=== PATIENT | female | born 1980 | race African-American/Black ===

== ENCOUNTER 2018-03-10 09:36 | Day surgery (SDC) | payer OTHER ==
[2018-03-06 10:13] VITALS: BMI 28.0
[2018-03-10] MEDS ORDERED: ONDANSETRON 4 MG/2 ML VIAL ONE ×2 (11:47→13:40)
[2018-03-10] MEDS ORDERED: MIDAZOLAM HCL 2 MG/2 ML SINGLE DOSE VIAL ONE (11:47)
[2018-03-10] MEDS ORDERED: DEXAMETHASONE SOD PHOSPHATE 4 MG/1 ML VIAL ONE (11:47)
[2018-03-10] MEDS ORDERED: LIDOCAINE HCL/PF 2% SDV 5ML VIAL ONE (11:47)
[2018-03-10] MEDS ORDERED: PROPOFOL 20 ML ONE (11:47)
[2018-03-10] MEDS ORDERED: methylPREDNISolone ACET (DEPO) 40 MG/1 ML VIAL ONE (12:18)
[2018-03-10] MEDS ORDERED: EPINEPHrine 1:1,000 1 MG/1 ML - 30ML VIAL (INJECTION) ONE (12:18)
[2018-03-10] MEDS ORDERED: BUPIVACAINE HCL 0.25% 125 MG/50 ML VIAL ONE (12:18)
[2018-03-10] MEDS ORDERED: ceFAZolin SODIUM 1 GM VIAL ONE (12:47)
[2018-03-10] MEDS ORDERED: methylPREDNISolone ACET (DEPO) 40 MG/1 ML VIAL NR ONE (13:15)
[2018-03-10] MEDS ORDERED: BUPIVACAINE HCL/PF 0.25% (2.5MG/ML) 10 ML VIAL IJ ONE (13:15)
--- NOTE | 2018-03-10 13:30 | PN ---
Progress Note (short form) - Note Progress Note: 37F s/p SARK POD #0. -Pain control. -WBAT RLE. -Percocet, Meloxicam ordered to patient's pharmacy. -f/u post-op trial of void. -Diet as tolerated. -Keep dressing clean & dry; d/c on Tuesday & place waterproof Band-Aids over incision sites. -Cane vs crutches. -f/u [facility] [place] office 03/17/2018; call for appointment; [phone]. Mike Main MD (Orthopaedic Surgery).
--- NOTE | 2018-03-10 13:32 | OP ---
Operative Note - Note: Operative Date: 03/10/18 Pre-Operative Diagnosis: Internal derrangement right knee Operation: Surgical arthroscopy right knee with debridement Findings: 1. Degenerative, partial ACL tear 2. Grade 1 chondromalacia patella, trochlear sulcus, and lateral tibial plateau Post-Operative Diagnosis: Same as Pre-op Surgeon: Mike Main Anesthesiologist/HVAC SALES ENGINEER: Tay Moreno Anesthesia: General Fluid Volume Replaced (mls): 800 (Crystalloid) Operative Report Dictated: Yes
[2018-03-10 15:10] VITALS: TEMP 97.9
--- NOTE | 2018-03-10 15:48 | OP ---
DATE OF OPERATION: 03/10/2018 DATE OF DICTATION: 03/10/2018 PREOPERATIVE DIAGNOSIS: Posttraumatic meniscal tear, left knee. POSTOPERATIVE DIAGNOSIS: Partial tear, left anterior cruciate ligament with chondromalacia retropatellar surface and lateral tibial plateau. SURGEON: Mike Main M.D. ANESTHESIA: General. OPERATION PERFORMED: Arthroscopy left knee. DESCRIPTION OF PROCEDURE: The patient was correctly identified. Brought into the operating room. The left lower extremity was prepped and free draped in the routine manner with a Betadine scrub solution, wiped off with alcohol, DuraPrep applied. Arthroscopic instrumentation introduced into the left knee. Findings revealed the following: The synovium was normal throughout the entire knee. The retropatellar surface revealed Outerbridge level 1 changes with some fibular changes noted. This was on the lateral facet. The trochlear groove was smooth, clean, and completely normal as was the entire hyaline cartilage of the femoral condyle and the medial tibial plateau. The lateral tibial plateau arthroscopically revealed grade 1 Outerbridge chondromalacia changes. The medial meniscus and lateral meniscus were pristine and uncomplicated, and normal. The popliteal fossa was normal. The anterior cruciate ligament revealed thickening layer of inner mucosa, some mild hemorrhage around the cruciate ligament noted, and longitudinal fibular tears noted in the actual anterior cruciate ligament giving the diagnosis of a partial tear of the ACL. This was left well alone. The wound knee was thoroughly lavaged. The knee was instilled with Marcaine steroid, and a 3-0 nylon suture was used to close the skin. No complications. MD PRAMOD Perez/[id number] MTDD
[2018-03-10] MEDS ORDERED: ONDANSETRON 4 MG/2 ML VIAL IVPUSH PRN (16:05)
[2018-03-10] MEDS ORDERED: oxyCODONE HCL 5 MG TABLET PO PRN ×2 (16:05)
[2018-03-10 16:15] VITALS: BP 118/71; PULSE 72
[2018-03-10] MEDS ORDERED: LACTATED RINGERS SOLUTION 1,000 ML IV SCH (16:15)
== END 2018-03-10 15:50 | disposition home or self-care (01) ==
LOC: FASU 09:36
PROVIDERS: ATTEND Orthopaedic Surgery Orthopaedic Surgery of the Spine
PROC: 0SJC4ZZ Inspection of Right Knee Joint, Percutaneous Endoscopic Approach (ICD-10-PCS; principal; 2018-03-10 11:00)
DX: S83.511A Sprain of anterior cruciate ligament of right knee, initial encounter (principal); X58.XXXA Exposure to other specified factors, initial encounter; Y93.9 Activity, unspecified; Y92.9 Unspecified place or not applicable; M22.41 Chondromalacia patellae, right knee
CPT/HCPCS: 84703; 94760